=== PATIENT | female | born 1995 | race Two or more races ===

== ENCOUNTER → 2022-01-10 | Emergency (ER) | payer OTHER ==
[~2022-01-10] VITALS: Ht 157.5 cm; Wt 59.4 kg
[~2022-01-10] MED LIST: BUPROPION XL150 MG PO; SPRINTEC 28 DA1 EACH PO; SYNTHROID75 MCG PO
== END | disposition left against medical advice (07) ==
LOC: ER 21:13
DX: Z53.21 Procedure and treatment not carried out due to patient leaving prior to being seen by health care provider (principal)